=== PATIENT | male | born 1965 | race Caucasian/White ===

== ENCOUNTER → 2017-11-13 | Outpatient (CLI) | payer OTHER | LOC: FIMAGING 10:08 | PROVIDERS: ATTEND Internal Medicine Hematology & Oncology | DX: C61 Malignant neoplasm of prostate (principal); R97.20 Elevated prostate specific antigen [PSA] | CPT/HCPCS: 78306; A9503 ==

== ENCOUNTER 2017-12-06 05:37 | Inpatient (IN) | payer OTHER ==
--- NOTE | 2017-12-05 16:08 | GHP ---
ADMISSION DIAGNOSIS: Prostate cancer. HISTORY: This is a 52-year-old gentleman who has had an elevated PSA and has had prostate cancer. H is original PSA prior to biopsy was 10.57. He had a 4K score 58%. Truss and MRI were concerning for a lesion. He had a PI-RADS 5 and on the biopsy, he had a Coreen 7 cancer and out of each biopsy si te, had prostate cancer. He had perineural invasion and he was a [place] 3 + 4, [employer] ation grade grouping 2. His largest core had 100% of cancer bulb that was in the region of interest 2. On region of interest 1, he had 95% of the lesion of the cancer. Biopsy core and cancer and he h ad 90% of several cores, 95% of a couple cores, and had significant prostate cancer. In September 2017, he had a transrectal ultrasound of the prostate and it revealed that he had somewhat of a dilated ri ght seminal vesicle and right side of the prostate and apical area had abnormal echoes, had a bit of an intravesical lobe of the prostate in the space between the posterior bladder and seminal vesicles appear to be having no gross appearance of cancer identified and on the MRI, the report said he had a 28 g gland and he had a suspicious transition zone in the right base and mid gland measuring up to 1 .6 PI-RADS 5 and he had indeterminate right transition zone lesion mid gland representing local prost atitis, although clinically present clinical cancer was equivocal. He had a small left inguinal zoila ia and he had a left para central protrusion at L5-S1 narrowing. He had no suspicious bony lesions a nd no pathologically enlarged lymph nodes in the pelvis on the MRI. As far as extraprostatic extensi on on the MRI, it has had seminal vesicle neurovascular bundles both symmetric with no evidence of di sease involvement. On rectal exam, it felt that his prostate was nontender and had no nodules apprec iated, but because of his size, the exam was a bit limited. There has been a question of whether he might have had a urinary tract infection and his guidance comprehensive bacterial report as of 2017 showed no significant bacteriuria. At the present time, he has consulted [facility] with Dr. Meneses and was felt that he wanted to move forward with a prostatectomy. I do not hav e a report of a bone scan on the patient that had been suggested by Dr. Meneses. At the present time, he is admitted for robotic assisted radical prostatectomy and pelvic lymph node dissection. PAST MEDICAL HISTORY: He has had some erectile dysfunction, had a history of kidney stones, occasion al bilateral orchialgia, urge frequency syndrome. PREVIOUS SURGERIES: Knee surgery, vasectomy, and a transrectal ultrasound biopsy of the prostate. Jorge wells is on no active medications. ALLERGIES: He has no known allergies. FAMILY HISTORY: Positive for kidney stones. SOCIAL HISTORY: Moderate alcohol consumption, nonsmoker. REVIEW OF SYSTEMS: Negative cardiac, respiratory, GI, and endocrine. PHYSICAL EXAMINATION: VITAL SIGNS: Stable. CHEST: Clear. HEART: Regular rate and rhythm. ABDOM EN: Normal. No organomegaly, rebound or guarding. EXTREMITIES: Lower extremities are normal. REC AGNIESZKA: Prostate after exam at the time of the biopsies has been in a more appropriate position it was noted that he had asymmetry right greater than left and nodule was present in the right lobe of the p rostate. At the present time, he is admitted for the above procedure. Indications and complications have been discussed. Written and verbal consent were obtained and he appears to be well informed in the diagnosis and stage grade and options and risks associated with treatments. /[id number]/MODL
[2017-12-06] MEDS ORDERED: ceFAZolin 2 GM/DEXTROSE 100 ML IV ONE (05:46)
[2017-12-06] MEDS ORDERED: LR 1,000 ML IV ONE (05:48)
[2017-12-06] MEDS ORDERED: LIDOCAINE 1% 2 ML INJ ID PRN (05:48)
[2017-12-06] MEDS ORDERED: ceFAZolin 3 GM in D5W 100 ML IV ONE (06:00)
--- NOTE | 2017-12-06 07:01 | PDHPUP ---
History & Physical Update H&P update statement: This history and physical update is based on an assessment of the patient which was completed after admission or registration (within 24 hours), but prior to the surgery/procedure. H&P update: H&P reviewed & patient examined, no change in patient's condition since H&P completed
[2017-12-06] MEDS ORDERED: MIDAZOLAM 2 MG/2 ML VIAL IVP ONE (07:14)
--- NOTE | 2017-12-06 07:14 | PDANEPAE ---
ANE Past Medical History - Cardiovascular History Hx Hypertension: No Hx Arrhythmias: No Hx Chest Pain: No Hx Coronary Artery / Peripheral Vascular Disease: No Hx CHF / Valvular Disease: No Hx Palpitations: No - Pulmonary History Hx COPD: No Hx Asthma/Reactive Airway Disease: No Hx Recent Upper Respiratory Infection: No Hx Oxygen in Use at Home: No Hx Sleep Apnea: No Sleep Apnea Screening Result - Last Documented: Negative - Neurologic History Hx Cerebrovascular Accident: No Hx Seizures: No Hx Dementia: No - Endocrine History Hx Diabetes: No Hypothyroid: No Hyperthyroid: No Obesity: moderate - Renal History Hx Renal Disorders: Yes Renal History Comment: ELEVATED PSA. UA FREQUENCY INCREASING SINCE 07/2017. KIDNEY STONE - Liver History Hx Hepatic Disorders: No - Neurological & Psychiatric Hx Hx Neurological and Psychiatric Disorders: No - Cancer History Hx Cancer: Yes Cancer History Comment: NEW DX PROSTATE - Congenital Disorder History Hx Congenital Disorders: No - GI History Hx Gastrointestinal Disorders: No - Other Health History Other Health History: CYST RT TESTICLE. LT CALF MUSCLE CRAMPS/POSITIONAL. ABDIRASHID VARICOSE VEINS - Chronic Pain History Chronic Pain: Yes (ACHE FROM TESTICULAR CYST) - Surgical History Prior Surgeries: OR GUIDED BX OF PROSTATE. RT KNEE RECONSTRUCTION 1982 ANE Review of Systems Review of Systems: - Exercise capacity METS (RN): 4 METS ANE Patient History - Allergies Allergies/Adverse Reactions: No Known Allergies Allergy (Unverified 11/30/17 14:40) - Home Medications Home Medications: Ibuprofen [Motrin (*)] 600 mg PO DAILY 11/30/17 [Last Taken 12/02/17] - NPO status NPO Since - Liquids (Date): 12/05/17 NPO Since - Liquids (Time): 22:30 NPO Since - Solids (Date): 12/02/17 - Smoking Hx Smoking Status: Never smoked - Family Anes Hx Family Hx Anesthesia Complications: NEG ANE Labs/Vital Signs - Vital Signs Blood Pressure: 162/99 Heart Rate: 83 Respiratory Rate: 18 O2 Sat (%): 93 Height: 207.01 cm Weight: 136.078 kg ANE Physical Exam - Airway Neck exam: FROM Mallampati Score: Class 1 Mouth exam: normal dental/mouth exam - Pulmonary Pulmonary: no respiratory distress - Cardiovascular Cardiovascular: regular rate and rhythym - ASA Status ASA Status: II ANE Anesthesia Plan Anesthesia Plan: general endotracheal anesthesia
[2017-12-06] MEDS ORDERED: BUPIVACAINE 0.5% 30 ML SDV ONE (07:25)
[2017-12-06] MEDS ORDERED: fentaNYL 250 MCG/5 ML INJ ONE ×2 (07:31→08:59)
[2017-12-06] MEDS ORDERED: PROPOFOL/EMULSION 500 MG/50 ML BOTTLE IV ONE (07:31)
[2017-12-06] MEDS ORDERED: REMIFENTANIL HCL 1 MG VIAL ONE ×2 (07:32)
[2017-12-06] MEDS ORDERED: ROCURONIUM 100 MG/10 ML VIAL ONE ×2 (07:55)
[2017-12-06] MEDS ORDERED: SURGIFLO MATRIX KIT WITH THROMBIN 8 ML TP ONE (08:46)
[2017-12-06] MEDS ORDERED: PROPOFOL 200 MG/20 ML VIAL ONE (08:57)
[2017-12-06] MEDS ORDERED: THROMBIN(HUM PLAS)/FIBRINOG/CA 5 ML VIAL TP ONE (09:15)
[2017-12-06] MEDS ORDERED: ONDANSETRON 4 MG/2 ML VIAL ONE (09:33)
[2017-12-06] MEDS ORDERED: DEXAMETHASONE 4 MG/ML VIAL ONE (09:33)
[2017-12-06] MEDS ORDERED: SUGAMMADEX SODIUM 200 MG/2 ML VIAL IVP ONE (10:50)
[2017-12-06] MEDS ORDERED: PROMETHAZINE HCL 25 MG/ML INJ IVP PRN (11:25)
[2017-12-06] MEDS ORDERED: NALOXONE HCL 0.4 MG/ML INJ IVP PRN ×2 (11:25→11:32)
--- NOTE | 2017-12-06 11:25 | POSTANESTH ---
Post Anesthetic Evaluation Cardiovascular Status: Normal, Stable Respiratory Status: Normal, Stable Level of Consciousness/Mental Status: Can Participate in Eval Pain Control: Adequate, Prn Tx Ordered Nausea/Vomiting Control: Adequate, Prn Tx Ordered Complications Possibly Related to Anesthesia: None Noted
[2017-12-06] MEDS ORDERED: METOCLOPRAMIDE 10 MG/2 ML VIAL IVP PRN (11:32)
[2017-12-06] MEDS ORDERED: ZOLPIDEM TARTRATE 5 MG TAB PO PRN (11:32)
[2017-12-06] MEDS ORDERED: oxyCODONE IR 5 MG TAB PO PRN (11:32)
[2017-12-06] MEDS ORDERED: ACETAMINOPHEN 325 MG TAB PO PRN (11:32)
--- NOTE | 2017-12-06 11:32 | POSTOPPROG ---
Post Op Note Date of Operation: 12/06/17 (dictated) Surgeon: Edward Santos Clinic Assistant: Giancarlo Anesthesiologist: Saravanan Anesthesia: GET(General Endotracheal) Pre-op Diagnosis: prostate cancer, symptomatic rt epididymal cyst Procedure: RA-RRP and PLND, rt epididymectomy Inf/Abcess present in the surg proc area at time of surgery?: No EBL: 50-100 Drains: Michael Gallagher, Other (grimes) Specimen(s): prostate, nodes, epididymis
[2017-12-06] MEDS ORDERED: fentaNYL 100 MCG/2 ML INJ ONE (11:35)
[2017-12-06] MEDS: fentaNYL 100 MCG/2 ML INJ IVP PRN ×2 (11:37→11:53)
--- NOTE | 2017-12-06 12:26 | PDMN ---
Medical Necessity Medical necessity: Pt meets inpt criteria per MD order and [facility] [place] S-[id number], Prostatectomy, Radical. 52 y/o w/prostate cancer, symptomatic R epididymal cyst admitted for radical prostatectomy w/pelvic node dissection and spermatocele repair. Dilaudid SALES SUPPORT REPRESENTATIVE for pain, IVF, ongoing monitoring/treatment post-op.
--- NOTE | 2017-12-06 13:12 | GOP ---
DATE OF OPERATION: SURGEON: Edward Santos MD RN CONCURRENT REVIEW: Lindsay Mondragon CFA. Cafeteria Operator was Chica Carvajal; scrub staff, Rafal Summers. ANESTHESIOLOGIST: Lc Newman MD. PREOPERATIVE DIAGNOSIS: Prostate cancer and right spermatocele, symptomatic. POSTOPERATIVE DIAGNOSIS: Prostate cancer and right spermatocele, symptomatic. PROCEDURE PERFORMED: A robotic-assisted radical retropubic prostatectomy and pelvic lymph node disse ction and a right spermatocelectomy through a scrotal incision. FINDINGS: SPECIMENS: Sent to Pathology. ESTIMATED BLOOD LOSS: Per Anesthesia 150 mL. DESCRIPTION OF PROCEDURE: After undergoing general anesthesia and being prepped and draped in a norm al sterile fashion and appropriate time-out, he had had supraumbilical evaluation and because of the length of his abdominal wall, I elected to place an infraumbilical camera port. So, a Veress needle was placed intraabdominally and the abdominal cavity inflated to 15 mmHg pressure. At that point, th e 12 mm camera port was placed under direct vision and then the 3 robot 8 mm ports were placed strate gically and the regulatory affairs assistant 12 mm port placed. At that point, the inspection of the intraabdominal spa ce revealed some adhesions of the sigmoid colon, were taken down sharply, and was able to bring the s igmoid colon out of the pelvis and identify each vas deferens, and the peritoneum dissected over thos e and carried down to where it went into the prostate. Anterior to the vesicles in the posterior par t to the vesicles, that was dissected out. Hemostasis provided in the ampulla of the vas deferens an d vesicles with Hem-o-linda and dissected between the prostate and the rectum and then at that point, w ent anteriorly after dividing the obliterated umbilical vessels and the urachus with electrocautery a nd then the endopelvic fascia identified on the right and left sides. It was incised, and I was able to dissect down to the apex of the prostate. The puboprostatic ligaments taken down sharply on the patient's left side. He had an accessory arter y going into the apex of the prostate. I tried to dissect that out initially to see if I could prese rve it, but because it went into the prostatic tissue and he had apical cancer on both the right and left sides, I elected to take that vessel and with Hem-o-loks provided hemostasis. I then ligated th e deep dorsal vein with two #0 Vicryl sutures in M-stitch technique. Then I opened the bladder neck, and he had an intravesical lobe of the prostate that was dissected out. I was able to get to the po int between the bladder neck and the intravesical lobe and then brought the ampulla vas deferens semi nal vesicles anterior to that posterior bladder neck opening. The right lateral pedicle and the left lateral pedicles were managed with Hem-o-loks for hemostasis carried down to the apex. Then the api benjamin part was transected. Grossly there was no suggestion of malignancy or cancer of prostatic tissue remaining. The specimen looked as it was intact with no violation of the capsule. Then, at that point, I used a 3-0 V-Loc suture to produce the Kuldeep stitch to do the continuous anast omosis. It was bridged with the Vaca catheter, irrigated, and it was watertight and clear. At that point, I did the pelvic lymphadenectomy using the mid aspect of the external iliac veins to the bifu rcation of the iliac vein and then down to the obturator nerve. Hemostasis and lymphostasis provided with Hem-o-loks, and the right and left samples were sent separately. At that point, biologic glue was used to reinforce the anastomosis and Surgicel was utilized. Drain placed in the space of Retziu s. Placed the specimen in the bag and then at that point undocked the robot, closed the regulatory affairs assistant po rt with an 0 Vicryl fascial closure device, and then at that point, opened the infraumbilical site so I could remove the specimen and then that linea alba was approximated with running 0 Vicryl from rig ht to left, and it was tight. Hemostasis noted. Skin was closed with 4-[address] d over the skin. At that point, had a right scrotal incision carried through skin and dartos, tunica vaginalis, and id entified the cystic globus major and an epididymectomy was performed, sending it off as a separate sp ecimen. The epididymis hemostasis was noted, and it was closed and reapproximated with a 3-0 chromic and then placed in the scrotum. Tunica vaginalis approximated with 3-0 chromic. 3-0 chromic used t o close the skin. He did have a cord block for that procedure. He tolerated the procedure well. At the present time will be admitted for postoperative care. I will discuss the findings with his fami des. COMPLICATIONS: No complications encountered. /[id number]/MODL
[2017-12-06] MEDS: HYDROmorphONE/DILAUDID 6 MG/30 ML PCA IV PRN (13:34)
[2017-12-06] MEDS: LR 1,000 ML IV SCH ×2 (13:37→21:44)
[2017-12-07 05:16] LABS: PLATELET COUNT 235 10^3/uL (150-400)
[2017-12-07] MEDS: LR 1,000 ML IV SCH ×2 (05:41→13:41)
[2017-12-07 07:19] VITALS: BP 135/81
--- NOTE | 2017-12-07 07:34 | SOAPPROG ---
SOAP Progress Note Assessment/Plan: Assessment: Prostate cancer Acute POD #1 doing well, I and O reviewed, labs ok, consider DC KAT after pt is ambulating Plan: DC planning if pt ambulates and feels appropriate 12/07/17 08:19 Subjective: doing well Objective: Vital Signs Temp Pulse Resp BP Pulse Ox 36.4 C 70 18 135/81 H 95 12/07/17 07:18 12/07/17 07:18 12/07/17 07:18 12/07/17 07:18 12/07/17 07:18 Laboratory Results 12/07/17 04:52 12/07/17 04:52 12/06/17 12/07/17 12/08/17 05:59 05:59 05:59 Intake Total 2746 Output Total 2265 Balance 481 Physical Exam - Physical Exam General Appearance: alert Neck: full range of motion Respiratory: No respiratory distress Cardiac/Chest: regular rate, rhythm Abdomen: soft Back: No CVA tenderness Skin: warm/dry Extremities: No calf tenderness Neuro/Psych: alert, oriented x 3 ICD10 Worksheet Patient Problems: Problems Problem Status Onset Prostate cancer Acute - ICD10 Problem Qualifiers (1) Prostate cancer
[2017-12-07] MEDS ORDERED: IBUPROFEN 200 MG TAB PO SCH (09:00)
[2017-12-07] MEDS: HYDROmorphONE/DILAUDID 6 MG/30 ML PCA IV PRN (12:29)
--- NOTE | 2017-12-07 15:14 | ASMTCMCOM ---
CM Note CM Note Notes: Reviewed chart, pt came in for a scheduled prostate surgery. Pt lives at home w/his and is otherwise independent. No needs identified, CM available for any changes. DC Plan: Independent Date Signed: 12/07/2017 03:13 PM Electronically Signed By:Indu Vasquez RN
--- NOTE | 2017-12-07 15:29 | GDS ---
PREOPERATIVE DIAGNOSIS: Spermatocele and prostate cancer. POSTOP DIAGNOSIS: Spermatocele and prostate cancer. After discussion of all of his options, patient elected to undergo a robotic-assisted radical retropu bic prostatectomy and pelvic lymph node dissection with right spermatocelectomy through a scrotal inc ision. This was done without difficulty, and he is being discharged home in good condition today. J P drain is to be removed, and he is going to follow up with our office in 10 days for voiding trial. /[id number]/MODL
== END 2017-12-07 15:59 | disposition home or self-care (01) | DRG 708 ==
LOC: F3N 05:37 → F1N 07:18 → F3E 12:52
PROVIDERS: ADMIT Specialist; ATTEND Specialist
DX: C61 Malignant neoplasm of prostate (principal); N43.40 Spermatocele of epididymis, unspecified; Z87.442 Personal history of urinary calculi
CPT/HCPCS: J0690; J1100; J1170; J2250; J2270; J2405; J2704; J2765; J3010